=== PATIENT | female | born 1995 | race African-American/Black ===

== ENCOUNTER 2017-03-18 04:48 | Inpatient (IN) ==
[2017-03-18] MEDS ORDERED: ACETAMINOPHEN 325 MG TABLET PO PRN ×2 (05:08→13:51)
[2017-03-18] MEDS ORDERED: BUTORPHANOL 1 MG/ML VIAL IV PRN (05:08)
[2017-03-18] MEDS ORDERED: ONDANSETRON 4 MG/2 ML VIAL IV PRN ×2 (05:08→13:51)
[2017-03-18] MEDS: LACTATED RINGERS 1,000 ML IV SCH ×2 (05:30→09:48)
[2017-03-18] MEDS ORDERED: OXYTOCIN/LR 20 UNIT/1,000 ML BAG IV SCH (05:30)
[2017-03-18] MEDS ORDERED: AMPICILLIN INJ 2,000 MG in SODIUM CHLORIDE 0.9% 100 ML IV ONE (05:34)
[2017-03-18 06:32] LABS: Basophils % 0.1 % (0.0-0.8); Eosinophils # 0.1 10*3/uL (0.0-0.87); Immature Granulocytes % 0.6 %; Immature Granulocytes Absolute 0.06 #; Lymphocytes # 2.2 10*3/uL (1.4-4.0); Lymphocytes % 22.3 % (21.3-54.2); Mean Corpuscular HGB Conc 28.9 GM/DL (32-36); Mean Corpuscular Hemoglobin 19 PG (27-34); Mean Corpuscular Volume 66.2 FL (87-102); Mean Platelet Volume 10.2 FL (9.6-12.0); Monocytes # 0.5 10*3/uL (0.11-0.8); Monocytes % 5.2 % (1.7-12.7); NRBC # 0.02 10*3/uL; Neutrophils # 6.9 10*3/uL (1.4-7.4); Neutrophils % 70.8 % (38.7-73.9); Platelet Count 210 T/CUMM (130-400); Red Blood Count 2.87 MC/CUMM (3.8-5.5); Red Cell Distribution Width 19.1 % (9.3-17.3); White Blood Count 9.7 T/CUMM (4-12)
[2017-03-18 07:33] LABS: Hemoglobin 5.5 GM/DL (12.0-16.0)
[2017-03-18] MEDS ORDERED: AZITHROMYCIN INJ 1,000 MG in SODIUM CHLORIDE 0.9% 250 ML IV ONE (07:52)
[2017-03-18 07:59] LABS: Microcytosis 2+; Polychromasia Slight
[2017-03-18 08:00] LABS: Hypochromasia 2+; Ovalocytes Slight; Platelet Estimate Normal
[2017-03-18] MEDS ORDERED: ePHEDrine 50 MG/ML AMP IV PRN (08:26)
[2017-03-18] MEDS ORDERED: CITRIC ACID/SODIUM CITRATE 30 ML UDCUP PO ONE (08:26)
[2017-03-18] MEDS ORDERED: fentaNYL 2 MCG/ROPIV 0.2% EPID 150 ML EPIDURAL SCH (08:26)
[2017-03-18] MEDS ORDERED: hydrOXYzine HCL 25 MG/1 ML VIAL IM PRN (08:26)
[2017-03-18] MEDS ORDERED: FAMOTIDINE 20 MG/2 ML VIAL IV ONE (08:26)
[2017-03-18] MEDS ORDERED: PROMETHAZINE 25 MG/1 ML VIAL IM ONE (08:26)
[2017-03-18] MEDS ORDERED: LACTATED RINGERS 1,000 ML IV ONE (08:26)
[2017-03-18] MEDS ORDERED: diphenhydrAMINE 50 MG/1 ML VIAL IV PRN (08:26)
[2017-03-18 08:41] LABS: HIV Antigen/Antibody Result Nonreactive (Nonreactive); Hepatitis B Surface Ag Quant 0.39 Index; Hepatitis B Surface Ag Result Negative (Negative); Rubella Antibody IgG 11.4 IU/ML
--- NOTE | 2017-03-18 09:00 | OB/GYN History & Physical ---
History of Present Illness Chief complaint: Patient admitted for Labor Induction via pitocin. History of present illness: Ms. Solis is a 21 year old female Has been [place] [facility] Demi Neves CNM since 10 weeks gestation. Patient admitted this am for labor induction () with pitocin Patient reports some occassional contractions over the past few weeks but denies any bloody show and no leakage of fluid. Patient reports good movement. 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 Treated with 1gram of zithromax IV IP Past Medical Hx.: Negative Past Surgical Hx. Negative Family Hx.: Negative Social Hx. + tobacco use, no illicit drug use, single AAF Meds: PNVs PE: Vitals wnl CVS-RRR, no murmur Lungs-CTA bilaterally Fundus- measurements appropriate for dates, nonrigid Extremities-+ pedal pulses, no edema, negative zack's sign SVE- 4/60/-3 FHTs category I tracing Zemple: continuous Home Medications Medication Instructions Recorded Confirmed Type Pnv Combo#47/Iron/FA #1/Dha 1 tablet PO DIRECTED 12/20/16 12/20/16 History [Rulavite Dha Softgel] Sertraline HCl [Zoloft] 1 tablet PO DIRECTED 12/20/16 12/20/16 History Allergies Allergy/AdvReac Type Severity Reaction Status Date / Time No Known Allergies Allergy Verified 12/06/16 08:03 12 point system: reviewed and no additional remarkable complaints except as stated Medical,Surgical,& Family Hx - Medical History Medical History: noncontributory Cardio: No history of: Hypertension Psychological: History of: Depression (during ) No history of: Previous Suicide Attempt Neurology: History of: Migraine Endocrine: No history of: Diabetes Mellitus (IDDM), Diabetes Mellitus (NIDDM) Respiratory: No history of: Asthma, Bronchitis, Pneumonia Renal: No history of: Renal Failure, Renal Problems Genitourinary: No history of: Kidney Stones, Recurring Urinary Tract Infections Gastrointestinal: No history of: Gastrointestinal Bleed, Liver Problems, GI Problems Musculoskeletal: No history of: Amputation Hematology: History of: Anemia (rec'd blood transfusion) No history of: Blood Transfusion Reaction Reproductive: History of: Ovarian Cysts No history of: Ectopic , Complication - Surgical History Thoracic Surgeries: Patient denies;: Organ Transplant Reproductive Surgeries: Surgical HX of;: Section, Dilation and Curettage, Gynecologic Surgery Patient denies;: Genitourinary Surgery - Family History Family History: Reports;: Family Hypertension (mom), Family Stroke (mgm), Additional Family History (pt's daughter born with 2 thumbs) Denies;: Family Anesthesia Reaction, Family Cancer, Family Diabetes, Family Heart Disease, Family Hematology, Family Psychiatric Problems - Social History Smoking Status: Never smoker Frequency of Alcohol Use: None 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: 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 - Constitutional Vitals: Vital Signs Temp Pulse Resp BP 03/18/17 05:39 98.5 F 90 16 100/58 - Antepartum / Post Antepartum Exam Cervix - Dilatation: 4cm Effacement: 60% Station: -3 Rupture: AROM at 0822am meconium stained fluid noted Presentation: vertex Heart Rate: FHTs category I tracing Zemple: continuous Assessment and Plan (1) Elective induction of labor planned Status: Acute Assessment and plan: Routine IP management Epidural as desired for pain management Anticipate Current Visit: Yes Results - Labs CBC & BMP: 03/18/17 06:54 Quality Measures - VTE Contraindication to Pharmacological VTE Prophylaxis: Clinical assessment deems Pt at low risk, no prophalaxis needed
[2017-03-18] MEDS ORDERED: METHYLERGONOVINE 0.2 MG/1 ML AMP ONE (09:39)
[2017-03-18] MEDS ORDERED: miSOPROStol 200 MCG TABLET ONE (09:44)
[2017-03-18] MEDS ORDERED: AMPICILLIN INJ 1,000 MG in SODIUM CHLORIDE 0.9% 100 ML IV SCH (10:15)
[2017-03-18 11:47] LABS: Apearance,Urine CLEAR (Clear); Bacteria,Urine Occasional /HPF (Few); Bilirubin,Urine Negative (Negative); Blood, Urine Negative (Negative); Glucose,Urine (UA) Negative (Negative); Ketones,Urine Negative (Negative); Nitrite,Urine Negative (Negative); Protein,Urine Negative; RBC,Urine 2 /HPF (0-4); Squamous Epithelial Cell,Urine Occasional /HPF (0-10); Urine Color Straw (Yellow); Urine Specific Gravity 1.003 (1.001-1.035); Urine Urobilinogen < 2.0 EU/DL (0.2-1.0); WBC,Urine 4 /HPF (0-6)
--- NOTE | 2017-03-18 13:49 | OB/GYN Progress Note ---
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 shoulders and body delivered without difficulty. Light meconium noted. Infant nose and mouth suctioned again, male genitalia noted, cord clamped then cut by FOB. Infant placed on radiant warmer under the supervision of nursery RN. Placenta delivered without difficulty and intact, 3 vessel cord noted. Fundus massaged until firm EBL 350mls. 1st degree midline vag lac repaired using 2-0 chromic. A- of viable male P-Routine PP management. 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
[2017-03-18] MEDS ORDERED: MAGNESIUM HYDROXIDE SUSP 30 ML UDCUP PO PRN (13:51)
[2017-03-18] MEDS ORDERED: BISACODYL 10 MG SUPP RECTAL PRN (13:51)
[2017-03-18 14:12] LABS: Eosinophils # 0.1 10*3/uL (0.0-0.87); Eosinophils % 0.4 % (0.00-10.9); Hematocrit 22.4 VOL% (35.7-47.0); Immature Granulocytes % 0.5 %; Immature Granulocytes Absolute 0.06 #; Lymphocytes # 1.8 10*3/uL (1.4-4.0); Lymphocytes % 14.7 % (21.3-54.2); Mean Corpuscular HGB Conc 28.1 GM/DL (32-36); Mean Corpuscular Hemoglobin 19 PG (27-34); Mean Corpuscular Volume 66.9 FL (87-102); Mean Platelet Volume 9.9 FL (9.6-12.0); Monocytes # 0.4 10*3/uL (0.11-0.8); Monocytes % 3.4 % (1.7-12.7); Platelet Count 139 T/CUMM (130-400); Red Blood Count 3.35 MC/CUMM (3.8-5.5); Red Cell Distribution Width 19.3 % (9.3-17.3); White Blood Count 12.4 T/CUMM (4-12)
[2017-03-18 14:18] LABS: Hemoglobin 6.3 GM/DL (12.0-16.0)
[2017-03-18] MEDS ORDERED: OXYTOCIN/LR 20 UNIT/1,000 ML BAG IV ONE (15:02)
--- NOTE | 2017-03-18 16:58 | Anesthesia Post-Op ---
Anesthesia Post OP - Post Ansesthetic Evaluation Patient seen in post op: Yes Resp: within normal limits CV: within normal limits Mental: within normal limits Temp: within normal limits Iibk-Mj-[id number]: within normal limits Nausea and Vomiting: within normal limits Pain: within normal limits
[2017-03-18] MEDS: IBUPROFEN 800 MG TABLET PO PRN (17:45)
[2017-03-18] MEDS: MULTIVITAMIN (PRENATAL) TABLET PO SCH (17:45)
[2017-03-18 19:08] LABS: Basophils % 0.1 % (0.0-0.8); Eosinophils # 0.1 10*3/uL (0.0-0.87); Eosinophils % 0.4 % (0.00-10.9); Hematocrit 19.4 VOL% (35.7-47.0); Immature Granulocytes Absolute 0.15 #; Lymphocytes # 1.9 10*3/uL (1.4-4.0); Lymphocytes % 12.7 % (21.3-54.2); Mean Corpuscular HGB Conc 28.4 GM/DL (32-36); Mean Corpuscular Hemoglobin 19 PG (27-34); Mean Corpuscular Volume 66.2 FL (87-102); Mean Platelet Volume 10.1 FL (9.6-12.0); Monocytes # 0.8 10*3/uL (0.11-0.8); Monocytes % 5.1 % (1.7-12.7); Neutrophils # 12.1 10*3/uL (1.4-7.4); Neutrophils % 80.7 % (38.7-73.9); Platelet Count 189 T/CUMM (130-400); Red Blood Count 2.93 MC/CUMM (3.8-5.5); White Blood Count 14.9 T/CUMM (4-12)
[2017-03-18 19:11] LABS: Hemoglobin 5.5 GM/DL (12.0-16.0)
[2017-03-18] MEDS ORDERED: SODIUM CHLORIDE 0.9% 250 ML IV PRN (19:16)
[2017-03-18] MEDS: DOCUSATE SODIUM 100 MG CAPSULE PO SCH (21:12)
[2017-03-18] MEDS: FERROUS SULFATE 325 MG TABLET PO SCH (21:12)
[2017-03-19] MEDS: IBUPROFEN 800 MG TABLET PO PRN ×2 (01:02→08:57)
[2017-03-19 07:19] LABS: Basophils % 0.2 % (0.0-0.8); Eosinophils # 0.1 10*3/uL (0.0-0.87); Eosinophils % 0.9 % (0.00-10.9); Hematocrit 24.2 VOL% (35.7-47.0); Hemoglobin 7.2 GM/DL (12.0-16.0); Immature Granulocytes % 0.6 %; Immature Granulocytes Absolute 0.08 #; Lymphocytes # 3.4 10*3/uL (1.4-4.0); Lymphocytes % 23.8 % (21.3-54.2); Mean Corpuscular HGB Conc 29.8 GM/DL (32-36); Mean Corpuscular Hemoglobin 21 PG (27-34); Mean Corpuscular Volume 70.1 FL (87-102); Mean Platelet Volume 10.3 FL (9.6-12.0); Monocytes # 0.6 10*3/uL (0.11-0.8); Monocytes % 4.5 % (1.7-12.7); NRBC # 0.03 10*3/uL; Platelet Count 173 T/CUMM (130-400); Red Blood Count 3.45 MC/CUMM (3.8-5.5); Red Cell Distribution Width 22.3 % (9.3-17.3); White Blood Count 14.3 T/CUMM (4-12)
[2017-03-19 07:42] LABS: Hypochromasia 1+
[2017-03-19 07:43] LABS: Microcytosis 1+; Platelet Estimate Adequate
[2017-03-19] MEDS: FERROUS SULFATE 325 MG TABLET PO SCH ×2 (08:57→22:00)
[2017-03-19] MEDS: MULTIVITAMIN (PRENATAL) TABLET PO SCH (08:57)
[2017-03-19] MEDS: DOCUSATE SODIUM 100 MG CAPSULE PO SCH ×2 (08:57→22:00)
--- NOTE | 2017-03-19 12:04 | OB/GYN Progress Note ---
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 Patient report bottle feeding . Patient reports normal voiding and only light bleeding. Patient requesting Depo Provera for contraception management prior to discharge in am but states she would like to have a tubal. 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 - Constitutional Vitals: Vital Signs Temp Pulse Pulse Resp BP BP Pulse Ox 03/19/17 07:49 98.2 F 67 17 101/66 03/19/17 04:06 97.5 F L 66 20 106/61 98 03/19/17 04:00 97.5 F L 66 20 106/61 03/19/17 02:29 98.5 F 63 20 110/66 95 03/19/17 01:29 98.9 F 71 20 122/62 96 03/19/17 00:59 98.2 F 66 18 102/59 95 03/19/17 00:57 98.9 F 57 L 20 95/54 95 03/19/17 00:54 98.9 F 57 L 20 95/54 95 03/19/17 00:49 99 F 62 20 86/55 95 03/19/17 00:44 98.7 F 63 18 106/67 96 03/19/17 00:00 97.9 F 64 18 94/50 03/18/17 23:15 97.9 F 64 18 94/50 100 03/18/17 22:15 97 F L 94 H 20 125/69 100 03/18/17 22:14 97 F L 94 H 20 125/69 100 03/18/17 21:45 97.7 F 72 16 98/62 100 03/18/17 21:40 98 F 77 20 98/54 100 03/18/17 21:35 97.6 F 67 20 98/50 100 03/18/17 21:28 97.8 F 68 20 100/61 100 03/18/17 19:45 97.1 F L 64 20 89/52 03/18/17 18:18 61 20 99/65 03/18/17 17:20 65 20 97/54 03/18/17 16:20 59 L 20 98/56 03/18/17 15:50 67 20 99/55 03/18/17 15:20 97.4 F L 56 L 20 96/55 Pulse Ox 03/19/17 07:49 100 03/19/17 04:06 03/19/17 04:00 98 03/19/17 02:29 03/19/17 01:29 03/19/17 00:59 03/19/17 00:57 03/19/17 00:54 03/19/17 00:49 03/19/17 00:44 03/19/17 00:00 100 03/18/17 23:15 03/18/17 22:15 03/18/17 22:14 03/18/17 21:45 03/18/17 21:40 03/18/17 21:35 03/18/17 21:28 03/18/17 19:45 100 03/18/17 18:18 97 03/18/17 17:20 99 03/18/17 16:20 98 03/18/17 15:50 98 03/18/17 15:20 97 General appearance: normal weight Results - Labs CBC & BMP: 03/19/17 07:09
[2017-03-20 07:42] VITALS: BP 118/71
[2017-03-20] MEDS: FERROUS SULFATE 325 MG TABLET PO SCH (09:01)
[2017-03-20] MEDS: DOCUSATE SODIUM 100 MG CAPSULE PO SCH (09:01)
[2017-03-20] MEDS: IBUPROFEN 800 MG TABLET PO PRN (09:01)
[2017-03-20] MEDS: MULTIVITAMIN (PRENATAL) TABLET PO SCH (09:01)
--- NOTE | 2017-03-20 11:42 | Discharge Summary ---
Hospital Course - Hospital Course Hospital Course: 03/20/2017 @ 1130am S- Patient rec'd laying in bed. Patient reports normal bowel and bladder habits since delivery. Patient requesting a tubal for contraception and refuses depo provera prior to discharge. O-CVS-RRR, no murmur, Lungs-CTA bilaterally Breast-soft and nipples intact bilaterally Fundus-firm 2 fbs below umbilicus Lochia- small amount of dark red rubra Extremities- + pedal pulses, no edema, negative zack's sign bilaterally Diagnosis - Discharge Diagnosis (1) Elective induction of labor planned Status: Resolved (2) Vaginal delivery following previous section, delivered Status: Resolved (3) care following vaginal delivery Status: Resolved Specialty Discharge - Follow Up or Referrals Discharge Plan - Discharge Data Disposition: Disch To Home/Self Care Condition at Discharge: Stable Discharge Diet: regular diet Activity: resume usual activities as tolerated Hygiene: may shower Weight Bearing at Discharge: full weight bearing Driving: not until seen by doctor Contact your physician if you experience:: fever over 101, Difficulty voiding, Shortness of breath, Bleeding, pain uncontrolled by pain medications - Discharge Medications New Ibuprofen Tab [Motrin Tab] 800 mg PO Q8H PRN #90 tablet PRN Reason: Pain Moderate (4-7) Ferrous Sulfate Tab [Feosol Original Tab] 325 mg PO BID #60 tablet HYDROcodone/ACETAMIN 5-325 [[place] 5-325] 1 tablet PO Q4H PRN #30 tablet PRN Reason: Pain Moderate (4-7) Continue Pnv Combo#47/Iron/FA #1/Dha [Rulavite Dha Softgel] 1 tablet PO DIRECTED Sertraline HCl [Zoloft] 1 tablet PO DIRECTED - Follow Up or Referral Follow Up: Yahaira Lee MD [Physician] - - Forms/Instructions Instructions: Perineal Care (DC), Vaginal Delivery (DC), Bleeding (DC) Additional Discharge Instructions: F/U in clinic with Dr. Lee 2 weeks. Exam - Constitutional Vitals: Period Temp Pulse Resp BP Sys/Rodriguez Pulse Ox Last 24 Hr 97.4 F-98.1 F 54-104 16-20 87-131/55-77 98-100 DS: Provider Date of admission: 03/18/17 05:08 Primary care physician: . No PCP Attending physician on admission: Yahaira Lee MD Discharging clinician: Brett Mcclelland Expected date of discharge: 03/20/17
== END 2017-03-20 12:15 | disposition home or self-care (01) | DRG 560 ==
LOC: N.LDOUT 04:48 → N.LD 04:50 → N.OB 15:18
PROVIDERS: ADMIT Obstetrics & Gynecology; ATTEND Obstetrics & Gynecology

== ENCOUNTER 2018-03-23 07:23 | Inpatient (IN) ==
[2018-03-23] MEDS ORDERED: IBUPROFEN 100 MG/5 ML UDCUP PO ONE (10:27)
[2018-03-23] MEDS ORDERED: SODIUM CHLORIDE 0.9% 1,000 ML IV STA (10:27)
[2018-03-23 11:07] LABS: Basophils % 0.1 % (0.0-0.8); Eosinophils # 0.1 10*3/uL (0.0-0.87); Eosinophils % 1.4 % (0.00-10.9); Hematocrit 19.1 VOL% (35.7-47.0); Immature Granulocytes % 0.4 %; Immature Granulocytes Absolute 0.03 #; Lymphocytes # 2.4 10*3/uL (1.4-4.0); Mean Corpuscular HGB Conc 26.2 GM/DL (32-36); Mean Corpuscular Hemoglobin 16 PG (27-34); Mean Platelet Volume 10.1 FL (9.6-12.0); Monocytes # 0.3 10*3/uL (0.11-0.8); Monocytes % 4.7 % (1.7-12.7); Neutrophils # 4.1 10*3/uL (1.4-7.4); Neutrophils % 59.4 % (38.7-73.9); Platelet Count 513 T/CUMM (130-400); Red Blood Count 3.08 MC/CUMM (3.8-5.5); Red Cell Distribution Width 23.6 % (9.3-17.3)
[2018-03-23 11:39] LABS: Calcium 8.6 MG/DL (8.5-10.1); Macrocytosis 1+; Polychromasia Slight
[2018-03-23 11:40] LABS: Elliptocytes Few; Osmolality,Calculated 276.4 MOS/KG (273-304); Potassium 3.4 MMOL/L (3.5-5.1); Target Cells Slight; Tear Drop Cells Few
[2018-03-23] MEDS ORDERED: ALBUTEROL 2.5 MG/3 ML NEB RESP TX PRN (11:57)
[2018-03-23] MEDS ORDERED: SODIUM CHLORIDE 0.9% 1,000 ML IV PRN ×2 (11:58→13:46)
[2018-03-23] MEDS ORDERED: PANTOPRAZOLE 40 MG VIAL IV SCH (12:00)
[2018-03-23] MEDS ORDERED: POTASSIUM CHLORIDE 20 MEQ TABLET PO ONE (12:04)
[2018-03-23 12:28] LABS: % Iron Saturation 1.9 % (18-50)
[2018-03-23 13:46] LABS: Barbiturates Screen,Urine Negative (Negative); Benzodiazepines Screen,Urine Negative (Negative); Cannabinoid Screen,Urine Positive (Negative); Opiate Screen,Urine Negative (Negative); Phencyclidine Screen,Urine Negative (Negative)
[2018-03-23 14:05] LABS: Apearance,Urine CLOUDY (Clear); Bilirubin,Urine Negative (Negative); Blood, Urine Large mg/dL (Negative); Glucose,Urine (UA) Negative (Negative); Ketones,Urine Negative (Negative); Nitrite,Urine Negative (Negative); Protein,Urine 100 MG/DL; RBC,Urine 7537 /HPF (0-4); Urine Color Red (Yellow); Urine Specific Gravity 1.014 (1.001-1.035); Urine Urobilinogen < 2.0 EU/DL (0.2-1.0)
[2018-03-23] MEDS: ETHINYL ESTRADIOL/NORGESTREL 0.03-0.3 MG TABLET PO SCH ×2 (18:05→20:23)
[2018-03-23] MEDS: PANTOPRAZOLE 40 MG TABLET PO SCH (20:23)
[2018-03-24 05:21] LABS: Basophils % 0.6 % (0.0-0.8); Eosinophils # 0.1 10*3/uL (0.0-0.87); Eosinophils % 1.8 % (0.00-10.9); Hematocrit 21.1 VOL% (35.7-47.0); Immature Granulocytes % 0.3 %; Immature Granulocytes Absolute 0.02 #; Lymphocytes # 2.3 10*3/uL (1.4-4.0); Lymphocytes % 32.1 % (21.3-54.2); Mean Corpuscular HGB Conc 29.4 GM/DL (32-36); Mean Corpuscular Hemoglobin 20 PG (27-34); Mean Corpuscular Volume 68.7 FL (87-102); Mean Platelet Volume 9.8 FL (9.6-12.0); Monocytes # 0.4 10*3/uL (0.11-0.8); Monocytes % 5.8 % (1.7-12.7); Neutrophils # 4.2 10*3/uL (1.4-7.4); Neutrophils % 59.4 % (38.7-73.9); Platelet Count 349 T/CUMM (130-400); Red Blood Count 3.07 MC/CUMM (3.8-5.5); Red Cell Distribution Width 26.7 % (9.3-17.3); White Blood Count 7.1 T/CUMM (4-12)
[2018-03-24 05:26] LABS: Hemoglobin 6.2 GM/DL (12.0-16.0)
[2018-03-24 05:44] LABS: Hypochromasia 1+; Microcytosis 2+; Ovalocytes Slight; Platelet Estimate Normal
[2018-03-24 05:45] LABS: Anisocytosis 1+; Calcium 7.9 MG/DL (8.5-10.1); Potassium 3.3 MMOL/L (3.5-5.1)
[2018-03-24] MEDS: PANTOPRAZOLE 40 MG TABLET PO SCH ×2 (06:06→20:52)
[2018-03-24 06:12] LABS: Hematocrit 21.8 VOL% (35.7-47.0)
[2018-03-24 06:21] LABS: Hemoglobin 6.1 GM/DL (12.0-16.0)
[2018-03-24 06:23] LABS: PT Patient Result 10.8 SECS
[2018-03-24] MEDS ORDERED: ONDANSETRON 4 MG/2 ML VIAL ONE (08:35)
[2018-03-24] MEDS: ONDANSETRON 4 MG/2 ML VIAL IV PRN ×4 (08:37→21:11)
[2018-03-24] MEDS ORDERED: POTASSIUM CHLORIDE 20 MEQ TABLET PO ONE (08:49)
[2018-03-24] MEDS: ETHINYL ESTRADIOL/NORGESTREL 0.03-0.3 MG TABLET PO SCH ×2 (10:06→20:52)
[2018-03-24] MEDS: NICOTINE 21 MG/24 HR PATCH TRANSDERM SCH (10:06)
[2018-03-24] MEDS ORDERED: LIDOCAINE 1% 5 ML VIAL ONE (11:43)
[2018-03-24] MEDS ORDERED: PROPOFOL 200 MG/20 ML VIAL IV ONE (11:43)
[2018-03-24 15:34] LABS: Hematocrit 24.8 VOL% (35.7-47.0); Hemoglobin 7.3 GM/DL (12.0-16.0)
[2018-03-24 21:20] LABS: Hematocrit 29.6 VOL% (35.7-47.0)
[2018-03-25 02:01] LABS: Calcium 7.8 MG/DL (8.5-10.1); Osmolality,Calculated 277.3 MOS/KG (273-304); Potassium 3.7 MMOL/L (3.5-5.1)
[2018-03-25 05:31] LABS: Hematocrit 27.7 VOL% (35.7-47.0); Hemoglobin 8.5 GM/DL (12.0-16.0)
[2018-03-25] MEDS: PANTOPRAZOLE 40 MG TABLET PO SCH (06:29)
[2018-03-25] MEDS: ETHINYL ESTRADIOL/NORGESTREL 0.03-0.3 MG TABLET PO SCH (09:19)
[2018-03-25] MEDS: NICOTINE 21 MG/24 HR PATCH TRANSDERM SCH (09:20)
[2018-03-25] MEDS: SUCRALFATE 1 GM/10 ML UDCUP PO SCH ×2 (10:21→11:30)
[2018-03-25 14:40] VITALS: BP 95/72
[2018-03-27] MEDS ORDERED: ETHINYL ESTRADIOL/NORGESTREL 0.03-0.3 MG TABLET PO SCH (09:00)
[2018-03-27 14:36] LABS: Source URINE
== END 2018-03-25 13:45 | disposition home or self-care (01) | DRG 761 ==
LOC: N.ED 07:23 → N.EDINP 11:43 → SUATTDRO 11:43 → N.4E 14:01
PROVIDERS: ADMIT Internal Medicine; ATTEND Internal Medicine